=== PATIENT | male | born 1950 | race Caucasian/White ===

== ENCOUNTER 2024-11-19 08:59 | Day surgery (SDC) | payer MEDICARE, OTHER ==
[~2024-11-19] VITALS: Ht 185.4 cm; Wt 124.5 kg
[~2024-11-19 08:59] MED LIST: CIALIS20 MG PO; IBLOOD GLUCOSE TEST STRIP 1 EA TEST VI PRN; LACTATED RINGER'S 1,000 ML IV SCH; LIDOCAINE HCL 1% 5 ML SDV INJ ONE; MIDAZOLAM HCL 5 MG/5 ML VIAL IV PRN; MIDAZOLAM HCL 5 MG/5 ML VIAL ONE; fentaNYL citrate 100 MCG/2 ML VIAL IV PRN; fentaNYL citrate 100 MCG/2 ML VIAL ONE
[2024-11-19 09:20] VITALS: BP 106/75
[2024-11-19] MEDS ORDERED: TAMSULOSIN HCL0.4 MG PO (09:22)
[2024-11-19] MEDS ORDERED: FINASTERIDE5 MG PO (09:23)
[2024-11-19] MEDS ORDERED: LOSARTAN POTASS50 MG PO (09:23)
--- NOTE | 2024-11-19 10:23 | NUR ---
11/19/24 Sarwat3 Brunilda Kebede 1014-PATIENT ARRIVED TO PACU ON 2L NC RR EVEN PATIENT AWAKE LAYING LEFT LATERAL PASSING GAS. ABDOMEN SOFT. IVF INFUSING. 1023-PATIENT AWAKE DENIES PAIN OR NAUSEA. 2L NC 95% RR EVEN
[2024-11-19 11:00] VITALS: BP 125/87
--- NOTE | 2024-11-20 06:11 | OR ---
[facility] [address] [place], [place] [address] Signed DATE OF OPERATION: 11/19/2024 SURGEON: Lola John MD PREOPERATIVE DIAGNOSES: 1. Screening. 2. Diverticulosis. 3. Small AV malformation throughout the colon. POSTOPERATIVE DIAGNOSES: 1. 4 mm polyp at 55 cm in left colon. 2. 4 mm polyp at 35 cm in sigmoid colon. 3. Tortuous left and sigmoid colon. 4. Redundant left and sigmoid colon. 5. Minimal to moderate internal hemorrhoids. 6. AV malformations throughout the colon. PROCEDURE: Colonoscopy with hot biopsy. ESTIMATED BLOOD LOSS: None. INDICATIONS: Brent is a 74-year-old gentleman, asked to see me for a followup colonoscopy. I had helped him with his initial screening colonoscopy back in 2012 at the age of 63. He had AV malformation scattered throughout his colon. He had a little diverticulosis. He had done well with Versed and fentanyl. We asked him to return in 10 years. He told me not much has changed in that 10 years. He has no family history of colon cancer or polyps. He has no major health issues. He said he does take a blood pressure now. He also told me he went through a divorce and moved into town. He said he has no lower GI complaints. In the office, I gave him a colonoscopy brochure. He understands the nature of the test along with the risk including, but not limited to gas bloating, crampy abdominal pain, bleeding, perforation requiring surgery, and missed diagnosis. We also reviewed the written instructions for the bowel prep line by line. It is the same prep he took previously. We looked at his medications together. We also reviewed the need for IV sedation. He did well with Versed and fentanyl previously. He understands an adult person has to take him home afterwards. He said he has a friend that can take him home. He had expressed understanding and wished to proceed. Electronically Signed By: LOLA JOHN MD 11/20/24 0611 PATIENT NAME: BRENT CHEN OPERATIVE REPORT DATE OF : 50 REPORT #: [id number] PHYSICIAN: LOLA JOHN MD PCP: BRYAN TERRELL MD REPORT IS CONFIDENTIAL AND NOT TO BE RELEASED WITHOUT AUTHORIZATION [facility] [address] [place] [id number] Signed DESCRIPTION OF PROCEDURE: Brent was taken into our endoscopy suite and placed in the left lateral decubitus position. He was given IV sedation with 5 mg of Versed and 100 mcg of fentanyl. A digital rectal exam was performed. This was unremarkable. He had good sphincter tone. Really not much in the way of any external hemorrhoids. His prostate is a little swollen and indurated consistent with his age. There were no masses. The adult colonoscope was introduced and advanced under direct visualization of the camera. It took a while to get through his tortuous and redundant left and sigmoid colon. Eventually, we made it with some abdominal compression down into the cecum itself. Thankfully, his prep was good as it was previously. We could easily see the appendiceal orifice and the ileocecal valve. The scope was slowly withdrawn. Once again, we saw AV malformation scattered throughout the colon. We also found two tiny polyps on this occasion and we took them out with the help of hot biopsy forceps. He does have diverticula in the left and sigmoid colon. They are moderate in size, few to moderate in number and scattered about. Once in the rectum, the scope had been retroflexed and he does have just minimal to moderate internal hemorrhoid columns. After this, the gas was suctioned out and the colonoscope removed. Brent tolerated the procedure quite well. RECOMMENDATIONS: I will see Brent back in my office in 7 to 14 days to review his biopsy results. Lola John MD ALB/MODL /[id number] cc: MD Lola Yu MD Copies: BRYAN TERRELL MD Electronically Signed By: LOLA JOHN MD 11/20/24 0611 PATIENT NAME: BRENT CHEN OPERATIVE REPORT DATE OF : 50 REPORT #: [id number] PHYSICIAN: LOLA JOHN MD PCP: BRYAN TERRELL MD REPORT IS CONFIDENTIAL AND NOT TO BE RELEASED WITHOUT AUTHORIZATION [facility] [address] [place] [address] [place] [address] Signed LOLA JOHN MD ~ Electronically Signed By: LOLA JOHN MD 11/20/24 0611 PATIENT NAME: BRENT CHEN OPERATIVE REPORT DATE OF : 50 REPORT #: [id number] PHYSICIAN: LOLA JOHN MD PCP: BRYAN TERRELL MD REPORT IS CONFIDENTIAL AND NOT TO BE RELEASED WITHOUT AUTHORIZATION
--- NOTE | 2024-11-25 09:43 | PATH ---
[facility] [address] [place], [place] [address] Signed SPECIMEN(S): A DESCENDING COLON POLYP AT 55 CM SPECIMEN(S): B SIGMOID POLYP AT 35 CM SPECIMEN SOURCE: A. DESCENDING COLON POLYP AT 55 CM B. SIGMOID POLYP AT 35 CM CLINICAL HISTORY: History: Diuretic, AV malformation. DX: Diuretic, AVM malformations, redundant colon. FINAL PATHOLOGIC DIAGNOSIS: A. Colon, descending at 55 cm, polypectomy: - Colonic mucosa with no significant pathologic changes B. Colon, sigmoid at 35 cm, polypectomy: - Colonic mucosa with no significant pathologic changes BRP MICROSCOPIC EXAMINATION: Histologic sections of all submitted blocks are examined by light microscopy. These findings, together with the gross examination, support the pathologic diagnosis. GROSS DESCRIPTION: A. The specimen, labeled and designated "Skirvin, A, descending colon polyp at 55 cm," is received in formalin and consists of one peterson soft tissue fragment, 0.3 cm. Entirely submitted in (A1). B. The specimen, labeled and designated "Skirvin, A, sigmoid polyp at 35 cm," is received in formalin and consists of one peterson soft tissue fragment, 0.3 cm. Entirely submitted in (B1). AB (under the direct supervision of a pathologist) The Gross Description was prepared using a voice recognition system. The report was reviewed for accuracy; however, sound-alike word errors, addition and/or deletions may occur. If there is any question about this report, please contact Client Services. ADDITIONAL NOTES: Immunohistochemical and/or in situ hybridization studies if performed in this case included appropriate positive controls that reacted as expected. This test was developed and its performance characteristics determined by [facility]. It has not been cleared or PATIENT NAME: CHAPO CHEN PATHOLOGY DATE OF : 50 REPORT #: [id number] PHYSICIAN: CEDRIC FLOYD PCP: BRYAN TERRELL MD REPORT IS CONFIDENTIAL AND NOT TO BE RELEASED WITHOUT AUTHORIZATION [facility] [address] [place] [id number] Signed approved by the U.S. Food and Drug Administration. The FDA has determined that such clearance or approval is not necessary. This test is used for clinical purposes. It should not be regarded as investigational or for research. [facility] is certified under the Clinical Laboratory Improvement Amendments of 1988 (CLIA) as qualified to perform high complexity clinical laboratory testing. PERFORMING LABORATORY: Technical component was performed by [facility], [address] [place] [address] (CLIA# [id number]). Professional interpretation was performed by [facility], [address] [place] [address] (CLIA#: [id number]). Diagnostician: Walter Pepper MD Pathologist Electronically Signed 11/25/2024 Copies: ~ PATIENT NAME: CHAPO CHEN PATHOLOGY DATE OF : 50 REPORT #: [id number] PHYSICIAN: CEDRIC FLOYD PCP: BRYAN TERRELL MD REPORT IS CONFIDENTIAL AND NOT TO BE RELEASED WITHOUT AUTHORIZATION
== END 2024-11-19 11:10 | disposition home or self-care (01) ==
LOC: DS 08:59
PROVIDERS: ATTEND Colon & Rectal Surgery
PROC: 0DBN8ZZ Excision of Sigmoid Colon, Via Natural or Artificial Opening Endoscopic (ICD-10-PCS; 2024-11-19)
PROC: 0DBG8ZZ Excision of Left Large Intestine, Via Natural or Artificial Opening Endoscopic (ICD-10-PCS; principal; 2024-11-19 09:30)
DX: Z12.11 Encounter for screening for malignant neoplasm of colon (principal); K63.5 Polyp of colon; K63.89 Other specified diseases of intestine; K64.8 Other hemorrhoids; K57.30 Diverticulosis of large intestine without perforation or abscess without bleeding; E66.9 Obesity, unspecified; I10 Essential (primary) hypertension; M48.00 Spinal stenosis, site unspecified; Z68.36 Body mass index [BMI] 36.0-36.9, adult
CPT/HCPCS: 88305; 99153; G0500; J2250; J3010; J7121